=== PATIENT | male | born 1970 | race Caucasian/White ===

== ENCOUNTER 2019-07-12 21:58 | Emergency (ER) | payer BC ==
[2019-07-12] MEDS ORDERED: Ketorolac INJ* 30 MG/ML 1 ML VIAL IM ONE (23:07)
--- NOTE | 2019-07-12 23:07 | ED ---
Lower Extremity - HPI Summary HPI Summary: 49-year-old male presents with left knee pain. He was kneeling and went to get up and twisted his knee and felt pain on lateral aspect of the knee. He's had a previous meniscal tear. He had a scope to the knee before. Denies any numbness tingling. He is unable to place weight on the area. No hip or ankle pain. No other injury. Is diabetic. - History of Current Complaint Chief Complaint: EDExtremityLower Stated Complaint: LT KNEE PAIN PER PT Time Seen by Provider: 07/12/19 22:33 Pain Intensity: 6 - Allergies/Home Medications Allergies/Adverse Reactions: Allergies Allergy/AdvReac Type Severity Reaction Status Date / Time No Known Allergies Allergy Verified 07/12/19 22:02 Home Medications: Home Medications Lisinopril 1 tab PO DAILY 07/12/19 [History Confirmed 07/12/19] Metformin HCl 2 tab PO BID 07/12/19 [History Confirmed 07/12/19] PMH/Surg Hx/FS Hx/Imm Hx Endocrine/Hematology History: Reports: Hx Diabetes Cardiovascular History: Reports: Hx Hypertension - not on meds Respiratory History: Reports: Hx Sleep Apnea - cpap user History: Denies: Hx Renal Disease Musculoskeletal History: Reports: Hx Orthopedic Injury - (left) knee - Surgical History Surgery Procedure, Year, and Place: 10/2004 (left) knee internal derangement & medial meniscus tear Infectious Disease History: No Infectious Disease History: Denies: Traveled Outside the [place] in Last 30 Days - Family History Known Family History: Positive: Non-Contributory - Social History Alcohol Use: Rare Substance Use Type: Reports: None Smoking Status (MU): Never Smoked Tobacco Review of Systems Negative: Fever Negative: Chest Pain Negative: Shortness Of Breath Positive: Myalgia - left knee pain All Other Systems Reviewed And Are Negative: Yes Physical Exam Triage Information Reviewed: Yes Vital Signs On Initial Exam: Initial Vitals Temp Pulse Resp BP Pulse Ox 97.4 F 97 18 144/103 97 07/12/19 22:00 07/12/19 22:00 07/12/19 22:00 07/12/19 22:00 07/12/19 22:00 Vital Signs Reviewed: Yes Appearance: Positive: Well-Appearing Skin: Positive: Warm, Dry Head/Face: Positive: Normal Head/Face Inspection Eyes: Positive: Normal, Conjunctiva Clear ENT: Positive: Pharynx normal Respiratory/Lung Sounds: Positive: Clear to Auscultation, Breath Sounds Present Cardiovascular: Positive: Normal, RRR Musculoskeletal: Positive: Limited @ - left knee, Other - good pulses, tenderness lateral aspect of left knee Neurological: Positive: Normal Psychiatric: Positive: Normal Procedures - Sedation Patient Received Moderate/Deep Sedation with Procedure: No Diagnostics - Vital Signs Vital Signs Temp Pulse Resp BP Pulse Ox 07/12/19 22:00 97.4 F 97 18 144/103 97 - Laboratory Lab Statement: Any lab studies that have been ordered have been reviewed, and results considered in the medical decision making process. - Radiology knee Radiology Interpretation Completed By: ED Physician Summary of Radiographic Findings: no fracture Lower Extremity Course/Dx - Course Course Of Treatment: 49-year-old male presents with left knee pain. He was kneeling and went to get up and twisted his knee and felt pain on lateral aspect of the knee. He's had a previous meniscal tear. He had a scope to the knee before. Denies any numbness tingling. He is unable to place weight on the area. No hip or ankle pain. No other injury. Is diabetic. On exam has tenderness over lateral aspect of left knee. Is not able to fully extend knee. Neurovascular intact. X-ray shows no fracture but some arthritis. We'll give the immobilizer crutches. Told to follow-up with orthopedic. Patient understands and agrees with plan. - Diagnoses Differential Diagnosis/HQI/PQRI: Positive: Fracture (Closed), Sprain, Strain Provider Diagnoses: Left knee pain Discharge ED - Sign-Out/Discharge Documenting (check all that apply): Patient Departure - Discharge Plan Condition: Good Disposition: HOME Patient Education Materials: Knee Pain (ED) Referrals: Chandana Cooper MD [Medical Doctor] - Kendall Garcia MD [Primary Care Provider] - Additional Instructions: Ice, elevate, Ibuprofen or Tylenol every 6 hours for pain Follow up with ortho Return to ED if develop or any new or worsening symptoms - Billing Disposition and Condition Condition: GOOD Disposition: Home
[2019-07-12 23:45] VITALS: BP 0/0
== END 2019-07-12 23:20 | disposition home or self-care (01) ==
LOC: ED 21:58
DX: M25.562 Pain in left knee (principal); E11.9 Type 2 diabetes mellitus without complications; I10 Essential (primary) hypertension; Z79.84 Long term (current) use of oral hypoglycemic drugs; Z79.899 Other long term (current) drug therapy
CPT/HCPCS: 96372; 99282; J1885